=== PATIENT | female | born 1955 | race Caucasian/White ===

== ENCOUNTER 2023-08-27 07:45 | Outpatient (CLI) | payer BC, SELFPAY | END 2023-08-27 07:46 | disposition home or self-care (01) | LOC: NFLDREF 13:02 | PROVIDERS: PCP Internal Medicine; Referring Provider Internal Medicine; Visit Provider Internal Medicine | DX: M85.80 Other specified disorders of bone density and structure, unspecified site (principal); E78.5 Hyperlipidemia, unspecified; R53.82 Chronic fatigue, unspecified | CPT/HCPCS: 80048; 80061; 82306 ==

== ENCOUNTER 2023-11-27 15:13 | Outpatient (CLI) | payer BC, SELFPAY ==
--- NOTE | 2023-11-27 15:30 | XR_ITS ---
Patient: ELAINE WEATHERS Facility:?[facility] Patient ID:?[id number] Site Patient ID:?[id number]. Site :?1955 Study:?DEXA-Bone Density DEXA - SPINE/HIPS-11/27/2023 4:12:26 PM Ordering Physician:MLE Final Report: DXA BONE MINERAL DENSITY STUDY Reason for exam: Osteopenia. Current height (in): 64. Weight (lb): 125. Menopause age: 55. Ethnicity: White. 1. Have you had a previous hip or vertebral fracture? No. 2. Have you had any fractures during your adult life which did not result from significant trauma (e.g., auto accident)? No. 3. Did either of your parents have a hip fracture? No. 4. Do you smoke? No. 5. Have you ever taken Glucocorticoids? No. 6. Do you have rheumatoid arthritis? No. 7. Do you have secondary osteoporosis? No. 8. Do you drink 3 or more alcoholic drinks per day? No. 9. Are you being treated for osteoporosis? No. 10. Have you ever taken any of the following medications: Actonel, Evista, Fosamax, Miacalcin, Reclast, Boniva, Forteo, HRT (i.e. estrogen/hormone therapy), Protelos, Prolia, Vitamin D, Calcium, other ? please specify. ANSWER: Yes, Vitamin D and Calcium. 11. Do you have any of the following medical conditions: Anorexia or bulimia, asthma or emphysema, end stage renal disease, hyperparathyroidism, any seizure disorders, cancer, inflammatory bowel diseases, hysterectomy, other ? please specify. ANSWER: Not provided. 12. What was your maximum height (inches)? 64.8. 13. Do you perform weight bearing exercise regularly? Yes. 14. Do you regularly consume dairy products? Yes. 15. Do you drink caffeinated beverages? Yes. If female: 16. At what age did your period start? 13. 17. Are you premenopausal? No. 18. How many full term pregnancies have you had? 0. 19. Have you ever missed your period for more than 6 months in a row (not including or menopause)? No. TECHNIQUE: Bone mineral density study was performed using the [employer]. FINDINGS: The results of the study expressed as bone mineral density (BMD) are as follows: Lumbar spine L1 to L4: BMD: 0.760 g/cm2. T-score: -2.6. Z-score: -0.6. Neck Left: BMD: 0.700 g/cm2. T-score: -1.3 . Z-score: 0.4. Right: BMD: 0.736 g/cm2. T-score: -1.0 . Z-score: 0.7. Total Left: BMD: 0.906 g/cm2. T-score: -0.3 . Z-score: 1.1. Right: BMD: 0.912 g/cm2. T-score: -0.2 . Z-score: 1.2. IMPRESSION: Osteoporosis. *Comparison exams done prior to 02/2020 were performed on different unit, Pets are family too. Florencio Augustin M.D. Diagnostic Radiologist [email or web address] DSM/sp D& Transcribed: 7:46 p.m. SP/Dictated by: Florencio Augustin MD @ 11/27/2023 4:34:00 PM Signed by:?Florencio Augustin MD @11/28/2023 5:40:23 AM (Electronic Signature)
== END 2023-11-27 15:14 | disposition home or self-care (01) ==
PROVIDERS: PCP Internal Medicine; Visit Provider Internal Medicine
DX: M85.89 Other specified disorders of bone density and structure, multiple sites (principal); M81.0 Age-related osteoporosis without current pathological fracture
CPT/HCPCS: 77080

== ENCOUNTER 2023-12-26 12:24 | Outpatient (CLI) | payer BC, SELFPAY ==
--- OUTSIDE RECORDS SUMMARY | 2023-12-26 12:26 | XMS_ITS | Clinical Summary ---
Author Name Unknown Organization [facility] Address [place], [place] [address] Care Team Providers Care Lawn Care Worker Name Role Phone Iona Roman Primary Care Provider [phone] Allergies Active Allergy Reactions Criticality Noted Date Comments Codeine Vomiting 08/22/2016 Poison Diamond Extract Rash 08/22/2016 Medications Medication Sig Dispensed Refills Start Date End Date Status zolpidem (AMBIEN) 5 mg tabletIndications:Dif ficulty sleeping Take 1/2 to 1 tab po at bedtime as needed 15 Tablet 02/21/2022 Active PARoxetine (PAXIL) 20 mg tabletIndications:Dep ression, unspecified depression type Take 0.5 Tablets (10 mg) by mouth two times daily. 90 Tablet 3 04/26/2023 Active Active Problems Problem Noted Date Diagnosed Date Stage 3a chronic kidney disease 04/29/2023 Stage 3a chronic kidney disease 04/29/2023 Mixed hyperlipidemia 04/29/2023 Depression, recurrent 04/04/2022 History of colon polyps 11/28/2018 Overview: Colonoscopy 11/2018 normal, repeat in 5 years Depression Arthritis Overview: right hand Osteopenia Overview: Due DEXA 2024 Immunizations Name Administration Dates Next Due AMB INFLUENZA, IIV4 (AGE=>6MOS) MDV (Flu Clinic Only) 06/26/2017 COVID-19 vaccine (Moderna 100mcg/0.5mL) PF, MDV 11/11/2020 Influenza Virus, Unspecified 06/27/2016 Influenza, High-dose Quadrivalent Inactivated Influenza, IIV4 07/03/2022,09/11/2018 Influenza, IIV4 (=>6mos) MDV 06/24/2019 Influenza, Inactivated AIIV4 (Age 65+ Years) Preserv Free 06/28/2020 Pneumococcal Conj 20-valent (Prevnar 20) 023 Pneumococcal Poly,23-Valent (Pneumovax) 06/24/20 20 Tdap 09/11/2018 Zoster (Shingrix-RZV, recombinant) 02/09/2020, Family History Medical History Relation Name Comments Bone cancer Brother Cancer Brother spinal Diabetes Father Hypertension Father Heart attack Maternal Grandmother Cancer-ovarian Mother non genetic t yping Heart attack Paternal Grandfather Heart attack Paternal Grandmother Hypertension Sister Relation Name Status Comments Brother Father Maternal Grandmother Mother Paternal Grandfather Paternal Grandmother Sister Social History Tobacco Use Types Packs/Day Years Used Date Smoking Tobacco: Never Smokeless Tobacco: Never Tobacco Cessation:Counseling Given: Yes Alcohol Use Standard Drinks/Week Comments Yes 0 (1 standard drink = 0.6 oz pur e alcohol) 1-2 drinks weekly PHQ-2 Answer Date Recorded PHQ-2 TOTAL SCORE 0 04/26/2023 Social Connections Answer Date Recorded Frequency of Communication with Friends and Fami ly 0 04/26/2023 Financial Resource Strain Answer Date R ecorded Difficulty of Paying Living Expenses 3 04/26/2023 Difficulty of Paying Living Expenses Not on file 04/26/2023 Food Insecurity Answer Date Recorded Worried About Running Out of Food in the Last Ye ar 1 04/26/2023 Transportation Needs Answer Date Record ed Lack of Transportation (Medical) 1 04/26/2023 Housing Stability Answer Date Recorded Unable to Pay for Housing in the Last Year 1 04/26/2023 Sex and Gender Information Value Date Recorded Sex Assigned at Female 06/04/2021 9:23 PM CDT Gender Identity Female 06/04/2021 9:23 PM CDT Sexual Orientation Straight 06/04/2021 9: 23 PM CDT Obstetrics History Para Term AB IAB SAB Ectopic Multiple Livin g Live Births 0 0 0 0 0 0 0 0 0 0 0 Last Filed Vital Signs Vital Sign Reading Time Taken Comments Blood Pressure 108/64 04/26/2023 7:34 AM CDT Pulse 83 04/26/2023 7:34 AM CDT Temperature 36.9 ??C (98.5 ??F) 12/28/2019 8:20 AM CD T Respiratory Rate 18 12/18/2019 1:17 PM CDT Oxygen Saturation 96% 04/26/2023 7:34 AM CDT Inhaled Oxygen Concentration - - Weight 64.4 kg (142 lb) 04/26/2023 7:34 AM CDT Height 163.6 cm (5' 4.41) 04/26/2023 7:34 AM CD T Body Mass Index 24.07 04/26/2023 7:34 AM CDT Plan of Treatment Health Maintenance Due Date Last Done Comments Hepatitis C screening for ag e 1973 COVID-19 vaccine series (2022- season) 2023 06/27/2022, 04/20/2022, 07/29/2021, Additional history exists Colonoscopy through age 75 11/29/202311/28, 11/28/2018, 11/28/2018 BMI (ht and wt on same day) for age 18+ 04/26/2024 04/26/2023, 06/12/2021, 09/17/2019, Additional history exists Depression screening for age 12+ 04/26/2024 04/26/2023, 04/04/2022, 06/12/2021, Additional history exists Influenza for age 65+ 05/17/2024 07/03/2022 , 07/06/2021, 06/28/2020, Additional history exists Mammogram for age 45-75 05/24/2024 05/24/20 23, 06/05/2021, 10/06/2019, Additional history exists Lipids for age 45-75 04/26/2028 04/26/2023, 06/12/2021, 09/11/2018, Additional history exists Tetanus booster 09/11/2028 09/11/2018 Tdap Completed 09/11/2018 DEXA/DXA scan for age 65+ Completed 10/06/2019, Zoster (shingles) series for age 50+ Completed 02/09/2020, 10/30/2019 Pneumococcal series for age 65+ Completed 3, 06/24/2020 Procedures Procedure Name Priority Date/Time Associated Diagnosis Comments XR MAMMO JAMES BILAT SCREEN Routine 05/24/2023 8:25 AM CDT Encounter for screening mammogram for malignant neoplasm of breast LIPID PANEL W REFLEX MEASURED LDL Routine 04/26/2023 4:43 PM CDT Screening cholesterol level XR DXA BONE DENSITY 2 SITES AXIAL Routine 10/06/2019 9:05 AM DAIRY DEPARTMENT MANAGER Osteopenia, unspecified location COLONOSCOPY 11/28/2018 11:12 AM CDT from Last 3 Months or Most Recently Relevant to Health Maintenance Results * XR MAMMO JAMES BILAT SCREEN (05/24/2023 8:25 AM CDT) Anatomical Region Laterality Modality BREASTS, Breast Left, Breast Right Bilateral Mammography Impressions 05/27/2023 2:51 PM CDT ??There is no radiographic evidence for malignancy. ??Recommend annual mammograms. MAMMOGRAM ASSESSMENT: ??ACR 1 Negative PATIENTS: You will also receive a letter with your examination results in an easy to read format. ??If you have questions about your results, please contact your referring provider. Narrative 05/27/2023 2:51 PM CDT For Patients: As a result of the Cures Act, medical imaging exams and procedure reports are released immediately into your electronic medical record. You may view this report before your referring provider. If you have questions, please contact your health care provider. XR MAMMO JAMES BILAT SCREEN [[id number]] CLINICAL HISTORY: ??This is an asymptomatic 68 y.o. patient. INDICATION FOR EXAM: Mammogram Screening. TECHNIQUE: CC & MLO views were obtained. ??This study was evaluated with the assistance of Computer-Aided Detection. Breast Tomosynthesis was used in interpretation. COMPARISON FILM: Yes 06/05/21 [facility] 10/06/19 [facility] FINDINGS: ??The breasts are heterogeneously dense, which may obscure small masses. There are no dominant masses, suspicious micro calcifications or areas of architectural distortion. Iona APARICIO MAMMO * (ABNORMAL) LIPID PANEL W REFLEX MEASURED LDL (04/26/2023 4:43 PM CDT) CHOLESTEROL,TOTAL 232(H) 100 - 199 mg/dL 04/27/2023 1:45 AM CDT [facility] Comment: Cholesterol, Total Reference Ranges Desirable <200 mg/dL Borderline 200-239 mg/dL High >=240 mg/dL TRIGLYCERIDES 109 <150 mg/dL 04/27/2023 1:45 AM CDT [facility] HDL CHOLESTEROL 69 >40 mg/dL 1:45 AM CDT [facility] NON-HDL CHOLESTEROL 163(H) <145 mg/dl 04/27/2023 1:45 AM CDT [facility] CHOL/HDL RATIO 3.36 <4.50 04/27/2023 1:45 AM CDT [facility] LDL CHOLESTEROL 141(H) <=130 mg/dL 04/27/2023 1:45 AM CDT [facility] VLDL CHOLESTEROL 22 <=30 mg/dL 04/27/2023 1:45 AM CDT [facility] PROVIDER ORDERED STATUS RANDOM 04/27/2023 1:45 AM CDT [facility] Blood BLOOD SPECIMEN / Unknown Venipuncture / Unknown 04/26/2023 4:43 PM CDT 04/26/2023 4:44 PM CDT Iona APARICIO [facility]MI[facility] [address] [place] [address], * (ABNORMAL) XR DXA BONE DENSITY 2 SITES AXIAL (10/06/2019 9:05 AM DAIRY DEPARTMENT MANAGER) Anatomical Region Laterality Modality Spine, HIPS, HIPL, HIPR Other Narrative 10/13/2019 8:55 AM DAIRY DEPARTMENT MANAGER Please see scanned document for results of this study. Scarlet Hammond MD DEXA * COLONOSCOPY (11/28/2018 11:12 AM CDT) 11/28/2018 11:1 2 AM CDT Narrative Transcriptions Artie Faith MD - 11/28/2018 12:02 PM CDT Patient Name: Yeni Daly Procedure Date: 11/28/2018 Gender: Female Date of : 1955 Admit Type: Outpatient Procedure: Colonoscopy Proceduralist: Artie Faith MD , Flakita Canales (Nurse) Indications/Pre-Op Diagnosis: Surveillance: Personal history ofadenomatous polyps on last colonoscopy 5 years ago, Last colonoscopy: November 2013 Medications: Fentanyl 100 micrograms IV, Midazolam 2 mgIV, The level of sedation administered wasmoderate Procedure Description: The patient had risks, benefits and alternatives explained to andgave informed consent. The patient had a stable cardiopulmonary status and judged an adequate candidate for conscious sedation. The [id number] was passed through the anus and advanced tothe cecum, identified by appendiceal orifice and ileocecal valve. The colonoscopy was performed without difficulty. The patient toleratedthe procedure well. The quality of the bowel preparation was good. The ileocecal valve, appendiceal orifice, and rectum were photographed. Complications: No immediate complications. Estimated Blood Loss & Specimen: Estimated blood loss: none. Specimen collected - None Findings: The perianal and digital rectal examinations were normal. The entire examined colon appeared normal on direct and retroflexion views. Impressions/Post-Op Diagnosis: - The entire examined colon is normal on direct and retroflexionviews. - No specimens collected. Recommendation: - Patient has a contact number available for emergencies. The signsand symptoms of potential delayed complications were discussed with the patient. Return to normal activities tomorrow. Written discharge instructions were provided to the patient. - Resume previous diet. - Continue present medications. - Repeat colonoscopy in 5 years for surveillance. Moderate Sedation: Moderate (conscious) sedation was administered by the endoscopy nurse and supervised by the endoscopist. The following parameters were monitored: oxygen saturation, heart rate, respiratory rate, blood pressure, adequacy of pulmonary ventilation and reponse to care. [facility] and nursing notes for moderate sedation details. Total physician intraservice time was 16 minutes. Artie Faith MD 11/28/2018 12:01:58 PM This report has been signed electronically. Note Initiated On: 11/28/2018 11:12 AM Procedure Code(s): --- Professional --- 14143, Colonoscopy, flexible; diagnostic, including collection of specimen(s) bybrushing or washing, when performed (separateprocedure) Diagnosis Code(s): --- Professional --- Z86.010, Personal history of colonicpolyps CPT copyright 2017 [employer]. All rights reserved. The codes documented in this report are preliminary and upon public address announcer reviewmay be revised to meet current compliance requirements. Scope In: 11:43:51 AM Scope Withdrawal Time 0 hours 8 minutes 2 seconds Scope Out: 11:58:26 AM Artie Faith MD PROCEDURE ORD from Last 3 Months or Most Recently Relevant to Health Maintenance Advance Directives Documents on File Type Date Recorded Patient Stubber Expl anation Healthcare Directive 10/06/2019 12:00 AM Care Teams Lawn Care Worker Relationship Specialty Start Date End Date Iona Roman PA [address] [place] [address] PCP - General Physician Agricultural Plow Operator 04/26/23
--- NOTE | 2023-12-26 13:45 | W.ANESCHARGE ---
Anesthesia Charges Start Date/Time Anesthesia Start Date: 12/26/23 Anesthesia Start Time: 13:07 Stop Date/Time Anesthesia Stop Date: 12/26/23 Anesthesia Stop Time: 13:40
--- NOTE | 2023-12-26 13:55 | W.ANESCHARGE ---
Anesthesia Charges Start Date/Time Anesthesia Start Date: 12/26/23 Anesthesia Start Time: 13:07 Stop Date/Time Anesthesia Stop Date: 12/26/23 Anesthesia Stop Time: 13:40
== END 2023-12-26 12:25 | disposition home or self-care (01) ==
LOC: OP CLINIC 12:24
PROVIDERS: PCP Internal Medicine; Visit Provider Surgery
DX: Z12.11 Encounter for screening for malignant neoplasm of colon (principal); K63.5 Polyp of colon; Z86.010 Personal history of colon polyps
CPT/HCPCS: 00811; 45385; 88305; J2704

== ENCOUNTER 2024-09-08 08:36 | Outpatient (CLI) | payer BC, SELFPAY | END 2024-09-08 08:37 | disposition home or self-care (01) | LOC: NFLDREF 18:28 | PROVIDERS: PCP Internal Medicine; Referring Provider Internal Medicine; Visit Provider Internal Medicine | DX: E78.5 Hyperlipidemia, unspecified (principal); M85.80 Other specified disorders of bone density and structure, unspecified site | CPT/HCPCS: 80061; 82306 ==

== ENCOUNTER 2024-12-04 08:11 | Outpatient (CLI) | payer BC, SELFPAY ==
--- NOTE | 2024-12-04 08:15 | CRLHL7_ITS ---
For Patients: As a result of the Century Cures Act, medical imaging exams and procedure reports are released immediately into your electronic medical record. You may view this report before your referring provider. If you have questions, please contact your health care provider. BILATERAL SCREENING MAMMOGRAM WITH COMPUTER-AIDED DETECTION AND TOMOSYNTHESIS TECHNIQUE: CC and MLO views were obtained. These mammographic images have been obtained using full-field digital technique. These mammographic images were interpreted with the benefit of computer-aided detection. Breast Tomosynthesis was used in this interpretation. COMPARISON FILM: 05/24/23, 06/05/21, 10/06/19. FINDINGS: The breasts are heterogeneously dense, which may obscure small masses. IMPRESSION: There is no radiographic evidence for malignancy. ASSESSMENT: BI-RADS Category 1: Negative RECOMMENDATION: Routine screening mammogram in 1 year. A lay language report of this examination will be provided to the patient. Florencio Augustin M.D. Diagnostic Radiologist [email or web address] SP/Dictated by: Florencio Augustin MD @ 12/15/2024 11:41:00 AM (Electronically Signed)
== END 2024-12-04 08:12 | disposition home or self-care (01) ==
LOC: MAMMO 08:11
PROVIDERS: PCP Internal Medicine; Visit Provider Internal Medicine
DX: Z12.31 Encounter for screening mammogram for malignant neoplasm of breast (principal); R92.333 Mammographic heterogeneous density, bilateral breasts
CPT/HCPCS: 77063; 77067